=== PATIENT | male | born 1980 | race Asian ===

== ENCOUNTER 2023-03-15 13:51 | Emergency (ER) | payer MEDICAID ==
[~2023-03-15] VITALS: Ht 165.1 cm; Wt 79.4 kg
[2023-03-15 14:15] VITALS: BP 124/80
--- NOTE | 2023-03-15 15:51 | NUR ---
ULNAR GUTTER SPLINT APPLIED. R LOWER ARM. BAILEY WRAP X 1. + CMS
[2023-03-15 16:12] VITALS: BP 112/70
--- NOTE | 2023-03-15 16:12 | NUR ---
Patient discharged with v/s stable. Written and verbal after care instructions given and explained. Patient verbalized understanding. Ambulatory with steady gait. All questions addressed prior to discharge. Advised to follow up with PMD.
== END 2023-03-15 16:12 | disposition home or self-care (01) ==
LOC: MED 13:51
DX: S62.334A Displaced fracture of neck of fourth metacarpal bone, right hand, initial encounter for closed fracture (principal); S62.336A Displaced fracture of neck of fifth metacarpal bone, right hand, initial encounter for closed fracture; R03.0 Elevated blood-pressure reading, without diagnosis of hypertension; Z88.8 Allergy status to other drugs, medicaments and biological substances; W22.8XXA Striking against or struck by other objects, initial encounter; Y93.89 Activity, other specified; Y92.89 Other specified places as the place of occurrence of the external cause; Y99.8 Other external cause status
CPT/HCPCS: 73130; 99283